=== PATIENT | male | born 1965 | race Caucasian/White ===

== ENCOUNTER → 2020-06-14 09:19 | Outpatient (BNVA) | payer MEDICARE, BC, MEDICAID, SELFPAY | PROVIDERS: PCP Family Medicine; Visit Provider Family Medicine | DX: I10 Essential (primary) hypertension (principal); M62.838 Other muscle spasm; M19.019 Primary osteoarthritis, unspecified shoulder; Z13.6 Encounter for screening for cardiovascular disorders; Z13.220 Encounter for screening for lipoid disorders | CPT/HCPCS: 73030; 80053; 80061 ==

== ENCOUNTER 2021-04-04 12:13 | Emergency (ER) | payer MEDICARE, MEDICAID, SELFPAY ==
[2021-04-04 12:37] VITALS: BP 153/96; PULSE 71; RESP 16; TEMP 36.8; O2SAT 97; BMI 31.6
--- NOTE | 2021-04-04 12:55 | PC.NURSE ---
notified charge nurse chente dodge off need of room for pt. she verbalized understanding and stated the pt would be placed in room [place].
--- NOTE | 2021-04-04 12:56 | CT_ITS ---
WS: [id number] CT HEAD TECHNIQUE: Noncontrast CT of the head obtained from the skullbase to the vertex. CLINICAL INFORMATION: sensation changes of left side face arm and trunk. COMPARISON: 2013 DLP: 857.[address] scans at [facility] use at least one of these dose optimization techniques: automated e xposure control; mA and/or kV adjustment per patient size (includes targeted exams where dose is matc hed to clinical indication); or iterative reconstruction. FINDINGS: No evidence of intracranial hemorrhage or mass effect. Ventricular system and basal cisterns are vines nt. Mild small vessel changes with mild parenchymal volume loss. No extra-axial fluid collections. No evidence of mass or mass effect. Normal rollins-white differentiation. Paranasal sinuses and mastoid air cells are well aerated. .Normal visualized soft tissues. CT/CT head wo con* [id number] IMPRESSION: 1. No evidence of intracranial hemorrhage or mass effect. 2. Mild small vessel changes. Mild parenchymal volume loss. 3. No acute intracranial findings.
--- NOTE | 2021-04-04 14:43 | ECG_ITS ---
[facility] Test Date: 2021-04-04 Pat Name: Gianfranco Mota Department: Room: Gender: Male Manager Labor Delivery: : 1965 Requested By: Elias Goff Order Number: [id number] Reading MD: INEZ EDWARD Measurements Intervals [place] Rate: 69 P: 42 KS: 159 QRS: 11 QRSD: 81 T: 38 QT: 391 QTc: 420 Interpretive Statements SINUS RHYTHM No previous ECG available for comparison Electronically Signed On 04-04-2021 21:55:27 CDT by INEZ EDWARD [id number]
[2021-04-04 16:13] VITALS: BP 139/86; PULSE 63; RESP 16; O2SAT 99
--- NOTE | 2021-04-04 16:14 | PC.NURSE ---
while speaking with pt pt is in nad.
[2021-04-04 16:33] LABS: Basophils % 0.5 %; Eosinophils # 0.2 10^3/uL (0.0-0.8); Eosinophils % 2.2 %; Hematocrit 48.4 % (42.0-52.0); Hemoglobin 16.4 g/dL (11.7-16.6); Lymphocytes # 1.6 10^3/uL (0.8-4.8); Lymphocytes % 21.8 %; Mean Corpuscular HGB Conc 33.9 g/dL (30.0-36.0); Mean Corpuscular Hemoglobin 33.1 pg (28.0-34.0); Mean Corpuscular Volume 97.8 fl (80-94); Mean Platelet Volume 10.3 fL (7.4-10.4); Monocytes # 0.5 10^3/uL (0.2-0.9); Monocytes % 7.1 %; Neutrophils # 5.05 10^3/uL (1.8-7.7); Neutrophils % 68.1 %; Nucleated Red Blood Cells % 0 %; Platelet Count 253 10^3/cmm (130-400); Red Blood Count 4.95 10^6/uL (4.1-5.3); Red Cell Distribution Width 11.9 % (12.1-15.1); White Blood Count 7.4 10^3/uL (4.0-10.0)
--- NOTE | 2021-04-04 16:43 | ECG_ITS ---
[facility] Test Date: 2021-04-04 Pat Name: Gianfranco Mota Department: Room: Gender: Male Managing Principal: : 1965 Requested By: Elias Goff Order Number: [id number] Reading MD: INEZ EDWARD Measurements Intervals [place] Rate: 57 P: 40 MD: 155 QRS: 8 QRSD: 83 T: 31 QT: 414 QTc: 403 Interpretive Statements SINUS BRADYCARDIA Compared to ECG 04/04/2021 12:47:01 Sinus rhythm no longer present Electronically Signed On 04-04-2021 21:58:22 CDT by INEZ EDWARD [id number]
[2021-04-04 16:56] LABS: Troponin(5th) Baseline 6 ng/L (0-15)
[2021-04-04 17:01] LABS: Alanine Aminotransferase 15 U/L (0-41); Albumin Level 4.7 g/dL (3.5-5.2); Alkaline Phosphatase 63 IU/L (40-130); Anion Gap 15.4 (5-19); Aspartate Amino Transferase 21 U/L (0-40); Blood Urea Nitrogen 11 mg/dL (6-20); Calcium 9.4 mg/dL (8.5-10.5); Carbon Dioxide 26 mmol/L (22-29); Chloride 103 mmol/L (98-107); Creatine Phosphokinase 201 U/L (39-308); Globulin 2.7 g/dL (1.3-4.6); Glucose 96 mg/dL (65-115); Osmolality Calculated 289 mOsm/kg (285-295); Potassium 4.4 mmol/L (3.5-5.1); Sodium 140 mmol/L (136-145); Total Bilirubin 0.4 mg/dL (0.15-1.2); Total Protein 7.4 g/dL (6.6-8.7)
[2021-04-04 19:02] LABS: Troponin 5 2HR Delta 0 ABS# (0-10)
--- NOTE | 2021-04-04 20:38 | XRR_ITS ---
PROCEDURE INFORMATION: Exam: XR Chest Exam date and time: 04/04/2021 8:38 PM Age: 55 years old Clinical indication: Pain; Chest pressure; Additional info: Cp TECHNIQUE: Imaging protocol: XR of the chest. Views: 1 view. COMPARISON: CR XR shoulder RT min 2V* [id number] 06/14/2020 9:32 AM FINDINGS: Lungs: Unremarkable. No consolidation. Pleural spaces: Unremarkable. No pleural effusion. No pneumothorax. Heart/Mediastinum: Unremarkable. No cardiomegaly. Bones/joints: Mild thoracic curvature. XR/XR chest 1V portable [id number] IMPRESSION: 1. No acute findings. Radiation Dose CTDIVOL = (mGy): DLP = (mGy-cm)
--- NOTE | 2021-04-04 20:43 | ECG_ITS ---
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 Measurements Intervals [place] Rate: 72 P: 49 IA: 166 QRS: 22 QRSD: 91 T: 32 QT: 413 QTc: 453 Interpretive Statements SINUS RHYTHM INTERPRETATION BASED ON A DEFAULT AGE OF 40 YEARS Compared to ECG 04/04/2021 17:37:06 Sinus bradycardia no longer present Electronically Signed On 04-05-2021 22:22:22 CDT by Ann Rosales M.D. [email or web address].[email or web address]/store/NU/[id number] f
--- NOTE | 2021-04-04 20:44 | W.ED.CHESTPA ---
HPI - Chest Pain General: Chief Complaint: Chest Pain Stated Complaint: NUMBNESS OF JAW AND LEFT SIDE HIGH B/P Time Seen by Provider: 04/04/21 20:44 History of Present Illness: HPI narrative: Mr. Mota is a 55-year-old gentleman with history of hypertension who presents emergency department due to sensory changes and chest pain. He reports somewhat acute onset without specific provoking factor at about 1040 this morning. He does not recall exactly what he was doing at that time. This was primarily in his trunk and face and arm. He described it more as a tingling sensation but has Difficulty characterizing the percent difference from contralateral side. This resolved spontaneously however he still has moderate intensity soreness of the left chest and arm. No other specific changes in health. No known specific exacerbating, provoking, or alleviating factors identified. No history of similar. Review of Systems General: Reports: 10 or more systems reviewed and unremarkable except in HPI and below PFSH ED PFSH: Medical History Hypertension Surgical History H/O hernia repair History of appendectomy Social History Smoking and tobacco status: never smoked Alcohol intake: current Alcohol intake frequency: holidays/special occasions only Alcohol type: beer Physical Exam Narrative: EXAM NARRATIVE: GENERAL/CONSTITUTIONAL - well-appearing. No acute distress. Eyes - PERRL, no conjunctival injection ENMT - Atraumatic external nose and ears. Moist mucous membranes NECK - supple. trachea midline CARDIOVASCULAR - regular rate and rhythm. Peripheral pulses 2+ and equal. No appreciable difference in pulse timing. RESPIRATORY -clear to auscultation bilaterally. ABDOMEN/GI - Nontender/Nondistended. MSK - Extremities without obvious deformity or tenderness to palpation SKIN - Warm, Dry NEURO - alert and appropriately oriented. Cranial nerves II through XII intact. No objective sensory changes identified. Gait and coordination normal. Strength and sensation intact. Moves all extremities equally. PSYCH - Appropriate mood and affect Course ED course: - Patient was seen and evaluated by me at bedside. Prolonged wait time in waiting room secondary to bed availability/ED capacity - Patient placed on cardiac monitors, IV access obtained - Initial evaluation notable for no neurologic deficits appreciated - Labs notable for no significant abnormality to explain patient's symptoms. Delta troponin negative with symptom onset greater than 6 hours from initial. - Imaging notable for no acute abnormality to explain patient's symptoms - Upon serial reexamination after treatment the patient was similar to somewhat improved without recurrence of neurologic symptoms. - Based on patient history, evaluation, labs, and imaging as interpreted the most likely cause of the patient's condition is unclear. - The results of ED evaluation were discussed with the patient including prescriptions and/or symptomatic cares (if applicable) including appropriate and responsible use, followup plan, and return precautions. Patient has a stress test planned for . The patient verbalized understanding and felt safe for discharge. - Patient discharged in satisfactory condition. Vital Signs: Vital signs: Vital Signs Temperature 98.2 F 04/04/21 12:37 Pulse Rate 65 04/04/21 22:57 Respiratory Rate 16 04/04/21 22:57 Blood Pressure 120/86 04/04/21 22:57 Pulse Oximetry 94 04/04/21 22:57 MDM - Chest Pain Medical Records: Attestation: I reviewed the patient's medical records. Lab Data: Attestation: I reviewed the patient's lab results. Labs: Lab Results 04/04/21 04/04/21 04/04/21 16:16 16:16 16:16 WBC 7.4 10^3/uL 10^3/ uL (4.0-10.0) RBC 4.95 10^6/uL 10^6 /uL (4.1-5.3) Hgb 16.4 g/dL g/dL (11.7-16.6) Hct 48.4 % % (42.0-52.0) MCV 97.8 fl H fl (80-94) MCH 33.1 pg pg (28.0-34.0) MCHC 33.9 g/dL g/dL (30.0-36.0) RDW 11.9 % L % (12.1-15.1) Plt Count 253 10^3/cmm 10^3 /cmm (130-400) MPV 10.3 fL fL (7.4-10.4) Neut % (Auto) 68.1 % % Lymph % (Auto) 21.8 % % [place] % (Auto) 7.1 % % Eos % (Auto) 2.2 % % Baso % (Auto) 0.5 % % Neut # (Auto) 5.05 10^3/uL 10^3 /uL (1.8-7.7) Lymph # (Auto) 1.6 10^3/uL 10^3/ uL (0.8-4.8) [place] # (Auto) 0.5 10^3/uL 10^3/ uL (0.2-0.9) Eos # (Auto) 0.2 10^3/uL 10^3/ uL (0.0-0.8) Baso # (Auto) 0.0 10^3/uL 10^3/ uL (0.0-0.1) Nucleated RBC % (a uto) 0 % % Nucleated RBCs # 0.0 /100WBC /100W BC Sodium 140 mmol/L mmol/L (136-145) Potassium 4.4 mmol/L mmol/L (3.5-5.1) Chloride 103 mmol/L mmol/L (98-107) Carbon Dioxide 26 mmol/L mmol/L (22-29) Anion Gap 15.4 (5-19) BUN 11 mg/dL mg/dL (6-20) Creatinine 0.8 mg/dL mg/dL (0.7-1.2) GFR Calculation 100.0 mL/min mL/m in (90-130) Glucose 96 mg/dL mg/dL (65-115) Calculated Osmolal ity 289 mOsm/kg mOsm/ kg (285-295) Calcium 9.4 mg/dL mg/dL (8.5-10.5) Total Bilirubin 0.4 mg/dL mg/dL (0.15-1.2) AST 21 U/L U/L (0-40) ALT 15 U/L U/L (0-41) Alkaline Phosphata se 63 IU/L IU/L (40-130) Creatine Kinase 201 U/L U/L (39-308) Troponin T Baselin e 6 ng/L ng/L (0-15) Troponin T 120 Min adriana Delta Troponin T Troponin T Hi Sens 6Hr Troponin T Hi Sens 6Hr Delta Total Protein 7.4 g/dL g/dL (6.6-8.7) Albumin 4.7 g/dL g/dL (3.5-5.2) Globulin 2.7 g/dL g/dL (1.3-4.6) 04/04/21 04/04/21 18:18 22:10 WBC RBC Hgb Hct MCV MCH MCHC RDW Plt Count MPV Neut % (Auto) Lymph % (Auto) [place] % (Auto) Eos % (Auto) Baso % (Auto) Neut # (Auto) Lymph # (Auto) [place] # (Auto) Eos # (Auto) Baso # (Auto) Nucleated RBC % (a uto) Nucleated RBCs # Sodium Potassium Chloride Carbon Dioxide Anion Gap BUN Creatinine GFR Calculation Glucose Calculated Osmolal ity Calcium Total Bilirubin AST ALT Alkaline Phosphata se Creatine Kinase Troponin T Baselin e Troponin T 120 Min adriana 6.00 ng/L ng/L (0-15) Delta Troponin T 0 ABS# ABS# (0-10) Troponin T Hi Sens 6Hr 6.08 ng/L ng/L (0-15) Troponin T Hi Sens 6Hr Delta 0.08 ng/L ng/L (0-12) Total Protein Albumin Globulin EKG Data^: EKG 1: Attestation: I personally reviewed and interpreted this EKG as follows: EKG interpretation date: 04/04/21 EKG interpretation time: 12:49 Interpretation: Twelve-lead EKG shows a regular rhythm at a rate of 69. KS interval 159, QRS duration 81, QTc 420 Normal axis Interpretation: Sinus rhythm EKG 2: Attestation: I personally reviewed and interpreted this EKG as follows: EKG interpretation date: 04/04/21 EKG interpretation time: 17:42 Interpretation: Twelve-lead EKG shows a regular rhythm at a rate of 57. KS interval 155, QRS duration 83, QTc 4 3. Normal axis. Interpretation: Sinus rhythm. Similar to prior. EKG 3: Attestation: I personally reviewed and interpreted this EKG as follows: EKG interpretation date: 04/04/21 EKG interpretation time: 21:37 Interpretation: Twelve-lead EKG shows a regular rhythm at a rate of 72. KS interval 166, QRS 91, QTc 437. Normal axis. Interpretation: Sinus rhythm. Similar to prior. Discharge Plan Discharge Patient Disposition: Home Clinical Impression: Chest pain, Paresthesia Condition: Stable Prescriptions: No Action aspirin 325 mg tablet 325 mg PO DAILY RF: 0 famotidine 20 mg tablet 20 mg PO DAILY RF: 0 cyclobenzaprine 5 mg tablet 10 mg PO TID MDD 6 tabs PRN (Reason: muscle spasm) Qty: 30 RF: 1 carvedilol 3.125 mg tablet 3.125 mg PO BID Qty: 60 RF: 1 omega-3 fatty acids [Fish Oil Concentrate] 1,000 mg capsule 1,000 mg PO DAILY Qty: 90 RF: 0 aspirin [Adult Aspirin Regimen] 81 mg tablet,delayed release (DR/EC) 81 mg PO DAILY Qty: 90 RF: 0 Discharge Orders: Discharge ED (Routine); Ordered 04/04/21 Ordered By: Valdo Martin Referrals: Sigrid Chowdhury MD [Primary Care Provider] - Discharge Diet: Usual diet Discharge Activity: Resume usual activity Patient Instructions: Chest Pain (ED), Paresthesia (ED), Opioid Safety Activity Restrictions/Additional Instructions: Thank you for visiting the emergency department. You were seen and evaluated for sensory changes on the left side of your body as well as chest pain. The exact cause of your symptoms is unclear. I recommend to continue your planned stress test on . Please follow-up with cardiology. Please return the emergency department for worsening symptoms or anything else that you are concerned about and feel needs emergency department evaluation. Coding Level of Care Code ED Spreader Operator Automatic for Rosio Morales
--- NOTE | 2021-04-04 21:01 | CTR_ITS ---
PROCEDURE INFORMATION: Exam: CT Angiography Head With Contrast, Arteriography Exam date and time: 04/04/2021 9:01 PM Age: 55 years old Clinical indication: Pain; Numbness; Headache; Additional info: Left sided sensory changes TECHNIQUE: Imaging protocol: Computed tomography angiography of the head with contrast. Exam focused on the arteries. 3D rendering (Not supervised by radiologist): MIP and/or 3D reconstructed images were created by the technologist. Radiation optimization: All CT scans at this facility use at least one of these dose optimization techniques: automated exposure control; mA and/or kV adjustment per patient size (includes targeted exams where dose is matched to clinical indication); or iterative reconstruction. Contrast material: OMNI 350; Contrast volume: 95 ml; Contrast route: INTRAVENOUS (IV); COMPARISON: CT head wo con* [id number] 04/04/2021 1:41 PM RADIATION DOSE METRICS: Total DLP (mGy-cm): 2540.6 FINDINGS: ANTERIOR CIRCULATION: Right internal carotid artery: Unremarkable. Intracranial segment is patent with no significant stenosis. No aneurysm. Right middle cerebral artery: Unremarkable. No occlusion or significant stenosis. No aneurysm. Right anterior cerebral artery: Unremarkable. No occlusion or significant stenosis. No aneurysm. Left internal carotid artery: Unremarkable. Intracranial segment is patent with no significant stenosis. No aneurysm. Left middle cerebral artery: Unremarkable. No occlusion or significant stenosis. No aneurysm. Left anterior cerebral artery: Unremarkable. No occlusion or significant stenosis. No aneurysm. POSTERIOR CIRCULATION: Right vertebral artery: Unremarkable. No occlusion or significant stenosis. No aneurysm. Left vertebral artery: Unremarkable. No occlusion or significant stenosis. No aneurysm. Basilar artery: Unremarkable. No occlusion or significant stenosis. No aneurysm. Right posterior cerebral artery: Unremarkable. No occlusion or significant stenosis. No aneurysm. Left posterior cerebral artery: Unremarkable. No occlusion or significant stenosis. No aneurysm. Brain: No definite mass, mass effect, or midline shift. Cerebral ventricles: No ventriculomegaly. Bones/joints: Unremarkable. No acute fracture. Soft tissues: Unremarkable. IMPRESSION: No large vessel stenosis or occlusion. PROCEDURE INFORMATION: Exam: CT Angiography Neck With Contrast Exam date and time: 04/04/2021 9:01 PM Age: 55 years old Clinical indication: Pain; Numbness; Headache; Additional info: Left sided sensory changes TECHNIQUE: Imaging protocol: Computed tomography angiography of the neck with contrast. 3D rendering (Not supervised by radiologist): MIP and/or 3D reconstructed images were created by the technologist. Radiation optimization: All CT scans at this facility use at least one of these dose optimization techniques: automated exposure control; mA and/or kV adjustment per patient size (includes targeted exams where dose is matched to clinical indication); or iterative reconstruction. Contrast material: OMNI 350; Contrast volume: 95 ml; Contrast route: INTRAVENOUS (IV); COMPARISON: CT head wo con* [id number] 04/04/2021 1:41 PM RADIATION DOSE METRICS: Total DLP (mGy-cm): 2540.6 FINDINGS: Right common carotid artery: No stenosis. No dissection or occlusion. Right internal carotid artery: No stenosis of the extracranial segment. No dissection or occlusion. Right external carotid artery: No occlusion or stenosis of the origin. Left common carotid artery: No stenosis. No dissection or occlusion. Left internal carotid artery: No stenosis of the extracranial segment. No dissection or occlusion. Left external carotid artery: No occlusion or stenosis of the origin. Right vertebral artery: No stenosis. No dissection or occlusion. Left vertebral artery: No stenosis. No dissection or occlusion. Soft tissues: Normal. No significant soft tissue swelling. Bones/joints: No acute fracture. CT/CT angio headneck* [id number] IMPRESSION: No stenosis or occlusion. REFERENCES: NASCET CRITERIA. The degree of internal carotid artery stenosis is based on NASCET criteria. Normal is no stenosis. Mild is less than 50% stenosis. Moderate is 50-69% stenosis. Severe is 70% to 99% stenosis. Total occlusion is no detectable patent lumen. Radiation Dose CTDIVOL = (mGy): DLP = 2540.6~2540.6 (mGy-cm)
--- NOTE | 2021-04-04 21:01 | CTR_ITS ---
PROCEDURE INFORMATION: Exam: CTA Chest With Contrast Exam date and time: 04/04/2021 9:01 PM Age: 55 years old Clinical indication: Pain; Chest pressure; Prior surgery; Surgery type: Gb; Additional info: Left chest pain, sensory changes TECHNIQUE: Imaging protocol: Computed tomographic angiography of the chest with contrast. 3D rendering (Not supervised by radiologist): MIP and/or 3D reconstructed images were created by the technologist. Radiation optimization: All CT scans at this facility use at least one of these dose optimization techniques: automated exposure control; mA and/or kV adjustment per patient size (includes targeted exams where dose is matched to clinical indication); or iterative reconstruction. Contrast material: OMNI 350; Contrast volume: 95 ml; Contrast route: INTRAVENOUS (IV); COMPARISON: CR (CHEST, ) 04/04/2021 8:47 PM RADIATION DOSE METRICS: Total DLP (mGy-cm): 1582.65 FINDINGS: Pulmonary arteries: Normal. No pulmonary emboli. Aorta: Unremarkable. No aortic aneurysm. No aortic dissection. Lungs: Unremarkable. No consolidation. No masses. Pleural spaces: Unremarkable. No pneumothorax. No pleural effusion. Heart: Unremarkable. No cardiomegaly. No pericardial effusion. Lymph nodes: Unremarkable. No enlarged lymph nodes. Stomach and bowel: Duodenal diverticula. Bones/joints: Unremarkable. No acute fracture. Soft tissues: Unremarkable. CT/CT angio chest [id number] IMPRESSION: 1. No evidence for pulmonary embolus or other acute finding. Radiation Dose CTDIVOL = (mGy): DLP = 1582.65 (mGy-cm)
[2021-04-04] MEDS: iohexol 350 mg/mL 100 mL Btl IV ×2 (21:20→21:22)
[2021-04-04 21:45] VITALS: BP 131/76; PULSE 70; RESP 18; O2SAT 97
[2021-04-04 22:43] LABS: Troponin 5 6HR 6.08 ng/L (0-15); Troponin 5 6HR Delta 0.08 ng/L (0-12)
[2021-04-04 22:57] VITALS: BP 120/86; PULSE 65; RESP 16; O2SAT 94
== END 2021-04-04 22:58 | disposition home or self-care (01) ==
PROVIDERS: Family Medicine; Emergency Provider Emergency Medicine; PCP Family Medicine
DX: R07.9 Chest pain, unspecified (principal); I10 Essential (primary) hypertension; R20.0 Anesthesia of skin; Z79.82 Long term (current) use of aspirin
CPT/HCPCS: 36415; 70450; 70496; 70498; 71045; 71275; 80053; 82550; 84484; 85025; 93005; 99283; Q9967

== ENCOUNTER 2021-04-07 07:54 | Outpatient (CLI) | payer MEDICARE, MEDICAID, SELFPAY ==
[2021-04-07 08:12] VITALS: BMI 31.3
--- NOTE | 2021-04-07 08:12 | NMCV_ITS ---
NM licha perf SPECT r/s* [id number] Gianfranco Mota Age: 55 Gender: M : 1965 Exam Date: 04/07/2021 09:28 Ordering Phys: Isabel Batres SURVEY AND MAPPING TECHNICIAN-BC XX Technologist: JOESPH Walker Exam Location: [facility] Indications: CHEST PAIN STRESS TEST Please see separate stress test report in [facility] for full findings IMAGE PROTOCOL Rest/Stress 1 Exercise Day Radiopharmaceutical Dose (mCi) Administration Site Administered by Rest: Tc-99m 10.6 IV JOESPH Kennedy Sestamibi Stress:Tc-99m 32.6 IV JOESPH Kennedy Sestamigalina Rest: 07-Apr-2021 60 Discovery 630 Stress: 07-Apr-2021 30 Discovery 630 Radiopharmaceutical was injected at 96 % maximum heart rate. Images obtained in supine and prone position. SPECT RESULTS Technical Quality: Excellent Raw Data Analysis: Normal Image Corrections: No attenuation or motion correction applied Summed Stress Score: 1 Summed Rest Score: 1 Summed Difference Score: 1 PERFUSION FINDINGS SPECT images demonstrate homogeneous tracer distribution throughout the myocardium. FUNCTIONAL RESULTS (calculated via Gated SPECT) Stress Image LV EF (%): 69 Stress EDV (mL):83 TID: 0.83 Stress ESV (mL):26 FUNCTIONAL FINDINGS: There is normal left ventricular systolic function. IMPRESSIONS 1. Normal myocardial perfusion imaging with no evidence of ischemia. 2. LV systolic function is normal Chance Mckeon MD (Electronically Signed) Final Date: 07 April 2021 15:33 S
--- NOTE | 2021-04-07 08:12 | ECG_ITS ---
[facility] Test Date: 2021-04-07 Pat Name: Gianfranco Mota Department: Room: Gender: Male Entry Level Marketing Assistant: : 1965 Requested By: Isabel Batres Order Number: [id number] MD: Chance Mckeon M.D. Interpretive Statements NAME OF STUDY: EXERCISE SESTAMIBI STRESS TEST INDICATION: [Chest Pain, ] EXERCISE DATA: The patient was exercised by Michael protocol. Baseline heart rate was 75 beats per minute. Baseline blood pressure was 137/80 millimeters of mercury. Target heart rate was 140 beats per minute. Maximum heart rate achieved was 168, which was 120% of the target heart rate. Maximum blood pressure was 176/96 millimeters of mercury. Total exercise time was 7 minutes 39 seconds. Maximum METs achieved was 10.2 maximum VO2 was 35.7. The reason for ending the test was completion of protocol. The patient complained of shortness of breath during the stress test, which then resolved at the end of the test. ELECTROCARDIOGRAM: BASELINE: Showed sinus rhythm, normal axis, no significant ST-T changes at the baseline noted. [] EXERCISE: At the peak exercise level, [] No significant ST-T changes suggestive of ischemia noted. [] RECOVERY: During the recovery period, heart rate dropped appropriately. No significant ST-T changes in the recovery suggestive of ischemia noted. [] CONCLUSION: 1. Exercise capacity excellent 2. Heart rate response was appropriate 3. Blood pressure response was appropriate 4. Symptoms not suggestive of ischemia. 5. Electrocardiogram portion of the stress test was not suggestive of ischemia. 6. Nuclear scan will be documented separately. Electronically Signed On 04-11-2021 11:44:00 ELECTRICAL ENGINEERING DESIGNER by Chance Mckeon M.D. [id number]
[2021-04-07 10:18] VITALS: BP 144/79; PULSE 94
== END 2021-04-07 07:55 | disposition home or self-care (01) ==
LOC: CDL 07:55
PROVIDERS: PCP Family Medicine; Visit Provider Nurse Practitioner Family
DX: R07.9 Chest pain, unspecified (principal)
CPT/HCPCS: 78452; 93017; A9500

== ENCOUNTER → 2022-06-20 16:47 | Outpatient (BNVA) | payer MEDICARE, MEDICAID, SELFPAY | PROVIDERS: PCP Nurse Practitioner Family; Visit Provider Nurse Practitioner Family | DX: M79.662 Pain in left lower leg (principal) | CPT/HCPCS: 73590 ==